=== PATIENT | female | born 1960 | race Caucasian/White ===

== ENCOUNTER 2017-05-30 06:09 | Inpatient (IN) | payer BC ==
[~2017-05-30 06:09] MED LIST: Lactated Ringers 1,000 ML IV SCH; Lidocaine 1%/Sod Bicarbonate in NS 8.4% 1 ML Syringe IV PRN; Sodium Chloride 0.9% 10 ML Syringe FLUSH PRN
[2017-05-30] MEDS ORDERED: Ondansetron 4 MG/2 ML SDV IVPUSH PRN (06:22)
[2017-05-30] MEDS ORDERED: Magnesium Hydroxide 400 MG/5 ML Susp 30 ML Cup PO PRN (06:22)
[2017-05-30] MEDS ORDERED: diphenhydrAMINE 50 MG/ML SDV IVPUSH PRN ×2 (06:22→09:50)
[2017-05-30] MEDS ORDERED: Naloxone 0.4 MG/ML SDV IVPUSH PRN (06:22)
[2017-05-30] MEDS ORDERED: Bisacodyl 5 MG Tab PO PRN (06:22)
[2017-05-30] MEDS ORDERED: Sennosides 8.6 MG Tab PO PRN (06:22)
[2017-05-30] MEDS ORDERED: Midazolam 1 MG/ML 2 ML SDV ONE (06:24)
[2017-05-30] MEDS ORDERED: Propofol 200 MG/20 ML SDV ONE (06:24)
[2017-05-30] MEDS ORDERED: fentaNYL 250 MCG/5 ML SDV ONE (06:25)
[2017-05-30] MEDS ORDERED: Ondansetron 4 MG/2 ML SDV ONE (06:26)
[2017-05-30] MEDS ORDERED: Lidocaine 1% 4 ML ONE (06:26)
[2017-05-30] MEDS ORDERED: Rocuronium 50 MG/5 ML Vial ONE (06:26)
[2017-05-30] MEDS ORDERED: Dexamethasone 4 MG/ML SDV ONE (06:26)
[2017-05-30] MEDS ORDERED: ceFAZolin 2 GM in Premix Bag 1 BAG IV SCH (06:30)
--- NOTE | 2017-05-30 06:35 | PCM.PREANE ---
Preanesthetic Assessment - Procedure Proposed Procedure: Right total shoulder arthroplasty - Anesthesia/Transfusion/Family Hx Anesthesia History: Prior Anesthesia Without Reaction Family History of Anesthesia Reaction: No Transfusion History: No Prior Transfusion(s) Intubation History: Unknown - Review of Systems General: No Symptoms Pulmonary: Other (JENA with CPAP ) Cardiovascular: No Symptoms Gastrointestinal: No Symptoms Neurological: No Symptoms Other: Reports: None, Depression, Anxiety - Physical Assessment NPO Status Date: 05/29/17 NPO Status Time: 18:30 Pulse: 63 O2 Sat by Pulse Oximetry: 98 Respiratory Rate: 16 Blood Pressure: 105/65 Temperature: 36.6 C Height: 1.55 m Weight: 62.596 kg ASA Class: 2 Mental Status: Alert & Oriented x3 Airway Class: Mallampati = 3 Dentition: Reports: Normal Dentition Thyro-Mental Finger Breadths: 3 Mouth Opening Finger Breadths: 3 ROM/Head Extension: Full Lungs: Clear to Auscultation, Normal Respiratory Effort Cardiovascular: Regular Rate, Regular Rhythm - Lab Values: Laboratory Last Values MRSA (PCR) Negative 05/17/17 12:44 - Allergies Allergies/Adverse Reactions: Allergies Allergy/AdvReac Type Severity Reaction Status Date / Time cat dander Allergy Cannot Verified 05/29/17 14:57 Remember - Blood Blood Available: No Product(s) Available: None - Anesthesia Plan Pre-Op Medication Ordered: None - Acknowledgements Anesthesia Type Planned: General Anesthesia, Regional Block Pt an Appropriate Candidate for the Planned Anesthesia: Yes Alternatives and Risks of Anesthesia Discussed w Pt/Guardian: Yes Pt/Guardian Understands and Agrees with Anesthesia Plan: Yes PreAnesthesia Questionnaire HEENT History: Reports: Impaired Vision Cardiovascular History: Reports: Heart Murmur Respiratory History: Reports: Other (See Below) Other Respiratory History: sleep apnea Gastrointestinal History: Reports: None Genitourinary History: Reports: Urinary Incontinence 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: Musculoskeletal History: Reports: Fibromyalgia, Osteoarthritis, Other (See Below ) Other Musculoskeletal History: right shoulder pain, joint pain Psychiatric History: Reports: Anxiety, Depression, Other (See Below) Other Psychiatric History: fatigue, bulimia nervosa Endocrine/Metabolic History: Reports: Diabetes, Gestational Hematologic History: Reports: None Immunologic History: Reports: None Oncologic (Cancer) History: Reports: None Dermatologic History: Reports: Other (See Below) Other Dermatologic History: herpes simplex virus - Past Surgical History HEENT Surgical History: Reports: Oral Surgery Cardiovascular Surgical History: Reports: None Respiratory Surgical History: Reports: None GI Surgical History: Reports: Colonoscopy Female Surgical History: Reports: D&C, Hysterectomy Endocrine Surgical History: Reports: None Neurological Surgical History: Reports: Laminectomy, Other (See Below) Other Neurological Surgeries/Procedures: Cervical fusion of C5C6 Musculoskeletal Surgical History: Reports: Other (See Below) Other Musculoskeletal Surgeries/Procedures:: Right toe surgery Oncologic Surgical History: Reports: None Dermatological Surgical History: Reports: None - SUBSTANCE USE Smoking Status *Q: Never Smoker Second Hand Smoke Exposure: No Recreational Drug Use History: No - HOME MEDS Home Medications: Home Meds Calcium Carbonate [Calcium] 1,200 mg PO DAILY 05/29/17 [History] Cholecalciferol (Vitamin D3) [Vitamin D3] 400 units PO DAILY 05/29/17 [History] Gluc/MSM/C/Hermann/Manganese/Nesha [Joint Support Complex Softgel] 1 cap PO DAILY [History] Lactobacillus Acidophilus [Acidophilus] 1 tab PO DAILY PRN 05/29/17 [History] Magnesium Citrate 100 mg PO DAILY PRN 05/29/17 [History] Multivitamin [Flintstones] 1 tab PO BTNUNITS 05/29/17 [History] Venlafaxine HCl [Venlafaxine ER] 75 mg PO DAILY 05/29/17 [History] valACYclovir [Valtrex] 2,000 mg PO DAILY PRN 05/29/17 [History] - CURRENT (IN HOUSE) MEDS Current Meds: Current Medications Lactated Ringer's (Ringers, Lactated) 1,000 mls @ 125 mls/hr IV ASDIRECTED JENNYFER Lidocaine/Sodium Bicarbonate (Buffered Lidocaine 1% In Ns 8.4%) 0.25 ml IV ONETIME PRN PRN Reason: Prior to IV Start Sodium Chloride (Saline Flush) 10 ml FLUSH ASDIRECTED PRN PRN Reason: Keep Vein Open Discontinued Medications Dexamethasone (Dexamethasone) Confirm Administered Dose 4 mg .ROUTE .STK-MED ONE Stop: 05/30/17 06:27 Fentanyl (Sublimaze) Confirm Administered Dose 250 mcg .ROUTE .STK-MED ONE Stop: 05/30/17 06:26 Lidocaine HCl (Xylocaine-Mpf 1%) Confirm Administered Dose 4 mls @ as directed .ROUTE .STK-MED ONE Stop: 05/30/17 06:27 Midazolam HCl (Versed 1 Mg/Ml) Confirm Administered Dose 2 mg .ROUTE .STK-MED ONE Stop: 05/30/17 06:25 Ondansetron HCl (Zofran) Confirm Administered Dose 4 mg .ROUTE .STK-MED ONE Stop: 05/30/17 06:27 Propofol (Diprivan 20 Ml) Confirm Administered Dose 200 mg .ROUTE .STK-MED ONE Stop: 05/30/17 06:25 Rocuronium Strong (Zemuron) Confirm Administered Dose 50 mg .ROUTE .STK-MED ONE Stop: 05/30/17 06:27
[2017-05-30] MEDS ORDERED: Lidocaine 1% 2 ML ONE (06:41)
[2017-05-30] MEDS ORDERED: Ropivacaine 0.5% 5 MG/ML 30 ML SDV ONE (08:24)
[2017-05-30] MEDS ORDERED: EPINEPHrine 1 MG/ML SDV ONE (08:24)
[2017-05-30] MEDS ORDERED: ePHEDrine/Normal Saline 25 MG/5 ML Syringe ONE (08:33)
[2017-05-30] MEDS: Iodine/Sodium Iodide 2% Tincture 30 ML Bottle ONE ×2 (08:33→09:03)
[2017-05-30] MEDS: ceFAZolin 1 GM Vial ONE ×2 (08:34→09:05)
[2017-05-30] MEDS: Bupivacaine 0.25% 30 ML SDV ONE ×4 (08:35→09:27)
[2017-05-30] MEDS: Vancomycin 1 GM SDV ONE ×2 (08:36→09:11)
[2017-05-30] MEDS: Triamcinolone Acetonide 40 MG/ML 1 ML MDV ONE ×2 (08:39→09:27)
--- NOTE | 2017-05-30 09:25 | PCM.SN ---
- Free Text/Narrative Note: Anesthesia Note: (Interscalene block note) Date: 05/30/17 Time Out: 648 Start: 644 Stop: 709 Surgical Procedure: Right Total Shoulder Arthroplasty Diagnosis: Right Shoulder Osteoarthritis Current Procedure: Right interscalene block under US guidance for postoperative pain control requested by Dr. Canseco. Patient chart reviewed, risk/benefits discussed with patient, consent obtained. Patient positioned supine, monitors/alarms on, oxygen placed via nasal cannula at 2 LPM. IV sedation administered: Versed 2mg IV @ 0650 Fentanyl 50 mcg IV @ 0650 Right shoulder prepped with two chloropreps. Sterile drapes placed with aseptic technique noted. Under US guidance(sterile US sleeve noted) right subclavian artery visualized along with the right brachial plexus. Plexus followed up to C6 cricoid level, and area localized with 2mls of 1% lidocaine. 22gauge 2 inch stimiplex needle advanced under US with 0.5mV with stimulation of biceps noted. Good stimulation noted with decreased voltage and absent at 0.2mVs. 1ml of Normal Saline injected with loss of stimulation noted to confirm needle not placed intraneurally. Incremental dosing of 5mls with negative aspiration noted prior to each injection of 0.5% ropivacaine with 1:200,000 epinephrine. Total volume=30mls. Vital Signs: Before HR: 63 RR: 16 BP: 105/73 Spo2: 100 on 2 LPM nasal cannula After HR: 63 RR: 14 BP: 105/73 Spo2: 99% on 2LPM nasal cannula
--- NOTE | 2017-05-30 09:49 | PCM.POSTAN ---
POST ANESTHESIA ASSESSMENT - MENTAL STATUS Mental Status: Alert, Oriented - VITAL SIGNS Pulse Rate: 86 SaO2: 97 Resp Rate: 11 Blood Pressure: 111/50 Temperature: 36.4 C - RESPIRATORY Respiratory Status: Respiratory Rate WNL, Airway Patent, O2 Saturation Stable, Supplemental Oxygen - CARDIOVASCULAR CV Status: Pulse Rate WNL, Blood Pressure Stable - GASTROINTESTINAL GI Status: No Symptoms - PAIN Pain Score: 0 - POST OP HYDRATION Hydration Status: Adequate & Stable
[2017-05-30] MEDS ORDERED: fentaNYL 100 MCG/2 ML SDV IVPUSH PRN (09:50)
[2017-05-30] MEDS ORDERED: Meperidine PF 50 MG/ML Syringe IVPUSH PRN (09:50)
[2017-05-30] MEDS ORDERED: HYDROmorphone 0.5 MG/0.5 ML Syringe IVPUSH PRN (09:50)
[2017-05-30] MEDS ORDERED: Promethazine 6.25 MG in Sodium Chloride 0.9% 50 ML IV PRN (09:50)
--- NOTE | 2017-05-30 10:06 | CR ---
Right shoulder: Three fluoroscopic spot views were obtained utilizing C-arm device of the right shoulder. Study shows reverse shoulder prosthesis. Components are aligned. Underlying bony structures are intact. Fluoroscopy time given as 4.2 seconds. Impression: 1. Postoperative study showing right shoulder prosthesis. Diagnostic code #2
--- NOTE | 2017-05-30 10:53 | CR ---
Right shoulder: AP view of the right shoulder was obtained. Study compared to previous operative exam performed on the same day. Reverse shoulder prosthesis seen. No fracture or other bony abnormality is seen. Impression: 1. Shoulder prosthesis. No complicating abnormality is identified by radiographic exam. Diagnostic code #2
[2017-05-30] MEDS: Acetaminophen/oxyCODONE 325-5 MG Tab PO PRN ×4 (10:58→23:57)
[2017-05-30] MEDS: Famotidine 20 MG Tab PO SCH ×3 (12:13→21:16)
[2017-05-30] MEDS: Cyclobenzaprine 10 MG Tab PO PRN ×2 (13:51→21:16)
[2017-05-30] MEDS ORDERED: valACYclovir 1,000 MG Tab PO PRN (13:53)
[2017-05-30] MEDS ORDERED: Saccharomyces Boulardii (Probiotic) 250 MG Cap PO PRN (13:53)
[2017-05-30] MEDS: ceFAZolin 2 GM in Premix Bag 1 BAG IV SCH ×2 (15:36→22:51)
--- NOTE | 2017-05-30 15:41 | PCM.CONS ---
H&P History of Present Illness - General Date of Service: 05/30/17 Admit Problem/Dx: Admission Diagnosis/Problem Admission Diagnosis/Problem Osteoarthritis of shoulder Source of Information: Patient, Other (anesthesia notes) History Limitations: Reports: No Limitations - History of Present Illness Initial Comments - Free Text/Narative: Constanza is a pleasant 56yo female s/p Rt TSA with Dr. Canseco this morning. PMH is significant for JENA with CPAP, depression/anxiety, urinary incontinence, fibromyalgia, history of heart murmur, hsitory of bulemia nervosa, history of gestational diabetes, history of back surgery/laminectomy, history of HSV. Hospitalist service is consulted for postoperative management of medical conditions. She is Full Code. PCP is Right Shoulder Pain Score (Numeric/FACES): 4 - Related Data Allergies/Adverse Reactions: Allergies Allergy/AdvReac Type Severity Reaction Status Date / Time cat dander Allergy Cannot Verified 05/30/17 10:48 Remember Home Medications: Home Meds Calcium Carbonate [Calcium] 1,200 mg PO DAILY 05/29/17 [History] Cholecalciferol (Vitamin D3) [Vitamin D3] 400 units PO DAILY 05/29/17 [History] Gluc/MSM/C/[place]or/Manganese/Nesha [Joint Support Complex Softgel] 1 cap PO DAILY [History] Lactobacillus Acidophilus [Acidophilus] 1 tab PO DAILY PRN 05/29/17 [History] Magnesium Citrate 100 mg PO DAILY PRN 05/29/17 [History] Multivitamin [Flintstones] 1 tab PO BTNUNITS 05/29/17 [History] Venlafaxine HCl [Venlafaxine ER] 75 mg PO DAILY 05/29/17 [History] valACYclovir [Valtrex] 2,000 mg PO DAILY PRN 05/29/17 [History] Past Medical History HEENT History: Reports: Impaired Vision Cardiovascular History: Reports: Heart Murmur Respiratory History: Reports: Other (See Below) Other Respiratory History: sleep apnea Gastrointestinal History: Reports: None Genitourinary History: Reports: Urinary Incontinence 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: Musculoskeletal History: Reports: Fibromyalgia, Osteoarthritis, Other (See Below ) Other Musculoskeletal History: right shoulder pain, joint pain Psychiatric History: Reports: Anxiety, Depression, Other (See Below) Other Psychiatric History: fatigue, bulimia nervosa Endocrine/Metabolic History: Reports: Diabetes, Gestational Hematologic History: Reports: None Immunologic History: Reports: None Oncologic (Cancer) History: Reports: None Dermatologic History: Reports: Other (See Below) Other Dermatologic History: herpes simplex virus - Past Surgical History HEENT Surgical History: Reports: Oral Surgery Cardiovascular Surgical History: Reports: None Respiratory Surgical History: Reports: None GI Surgical History: Reports: Colonoscopy Female Surgical History: Reports: D&C, Hysterectomy Endocrine Surgical History: Reports: None Neurological Surgical History: Reports: Laminectomy, Other (See Below) Other Neurological Surgeries/Procedures: Cervical fusion of C5C6 Musculoskeletal Surgical History: Reports: Other (See Below) Other Musculoskeletal Surgeries/Procedures:: Right toe surgery Oncologic Surgical History: Reports: None Dermatological Surgical History: Reports: None Social & Family History - Family History Family Medical History: Noncontributory - Tobacco Use Smoking Status *Q: Never Smoker Second Hand Smoke Exposure: No - Caffeine Use Caffeine Use: Reports: Coffee - Recreational Drug Use Recreational Drug Use: No H&P Review of Systems - Review of Systems: Review Of Systems: See Below General: Reports: No Symptoms HEENT: Reports: No Symptoms Pulmonary: Reports: No Symptoms Cardiovascular: Reports: No Symptoms Gastrointestinal: Reports: No Symptoms Genitourinary: Reports: No Symptoms Musculoskeletal: Reports: Shoulder Pain, Arm Pain Skin: Reports: No Symptoms Psychiatric: Reports: No Symptoms Neurological: Reports: No Symptoms Exam - Exam Exam: See Below - Vital Signs Vital Signs: Last Vital Signs Temp 97.8 F 05/30/17 10:25 Pulse 73 05/30/17 14:32 Resp 12 05/30/17 10:40 BP 98/58 L 05/30/17 14:32 Pulse Ox 96 05/30/17 14:32 Weight: 138 lb - Exam Quality Assessment: Supplemental Oxygen General: Alert, Oriented, Cooperative HEENT: Conjunctiva Clear, EOMI, Hearing Intact, Mucosa Moist & [place], Pupils Equal Neck: Supple Lungs: Clear to Auscultation, Normal Respiratory Effort, Decreased Breath Sounds (bases) Cardiovascular: Regular Rate, Regular Rhythm GI/Abdominal Exam: Normal Bowel Sounds, Soft, Non-Tender (Female) Exam: Deferred Rectal (Female) Exam: Deferred Extremities: Normal Capillary Refill, Other (right shoulder immobilizer in place , CMS + and = bilat) Peripheral Pulses: 2+: Radial (L), Radial (R) Skin: Warm Neurological: Cranial Nerves Intact Neuro Extensive - Mental Status: Alert, Oriented x3, Normal Mood/Affect, Normal Cognition, Memory Intact Neuro Extensive - Motor, Sensory, Reflexes: CN II-XII Intact Psychiatric: Alert, Normal Affect, Normal Mood Consult PN Assessment/Plan POD#: 0 Procedures: Procedures EMERGENCY DEPT VISIT (11/27/15) MRI JOINT UPR EXTREM W/O DYE (04/26/17) MRI NECK SPINE W/O DYE (06/22/16) POLYSOM 6/> YRS 4/> JEROME (07/10/15) POLYSOM 6/>YRS CPAP 4/> PARM (08/18/15) REMOVE FOREIGN BODY FROM EYE (11/27/15) US XTR NON-VASC COMPLETE (05/17/17) (1) Status post total shoulder arthroplasty SNOMED Code(s): 816714200 Code(s): Z96.619 - PRESENCE OF UNSPECIFIED ARTIFICIAL SHOULDER JOINT Priority: High Current Visit: Yes Qualifiers: Laterality: right Qualified Code(s): Z96.611 - Presence of right artificial shoulder joint (2) Osteoarthritis SNOMED Code(s): 646143590 Code(s): M19.90 - UNSPECIFIED OSTEOARTHRITIS, UNSPECIFIED SITE Priority: High Current Visit: Yes Qualifiers: Osteoarthritis location: shoulder Laterality: right (3) JENA on CPAP SNOMED Code(s): 78237167 Code(s): G47.33 - OBSTRUCTIVE SLEEP APNEA (ADULT) (PEDIATRIC); Z99.89 - DEPENDENCE ON OTHER ENABLING MACHINES AND DEVICES Priority: Medium Current Visit: Yes (4) Fibromyalgia SNOMED Code(s): 448274941 Code(s): M79.7 - FIBROMYALGIA Priority: Medium Current Visit: No (5) Urinary incontinence SNOMED Code(s): 813923681 Code(s): R32 - UNSPECIFIED URINARY INCONTINENCE Priority: Low Current Visit: No (6) Hx of cardiac murmur SNOMED Code(s): 003615282 Code(s): Z86.79 - PERSONAL HISTORY OF OTHER DISEASES OF THE CIRCULATORY SYSTEM Priority: Medium Current Visit: No (7) Hx of bulimia nervosa SNOMED Code(s): 736525336576308 Code(s): Z86.59 - PERSONAL HISTORY OF OTHER MENTAL AND BEHAVIORAL DISORDERS Priority: Low Current Visit: No (8) Hx of herpes simplex infection SNOMED Code(s): 282988753 Code(s): Z86.19 - PERSONAL HISTORY OF OTHER INFECTIOUS AND PARASITIC DISEASES Priority: Low Current Visit: No Problem List Initiated/Reviewed/Updated: Yes Plan: I/P: S/P Rt TSA, POD #0, Dr. Canseco -Pain management and DVT prophylax per primary team -PT/OT -RT/IS -Follow labs, am hgb -Supplemental oxygen as needed for sats <90%; wean when able Osteoarthritis--rt shoulder; plan as above Chronic medical conditions: Cont home meds -JENA with CPAP -Depression/Anxiety- stable--cont home meds -Hx of heart murmur -Hx of fibromyalgia -Hx of GDM -Hx of Bulemia Nervosa -Hx of HSV- cont home med, valtrex -Hx of back surgery/laminectomy Other: GI Prophylax Cont home meds Patient is Full Code status PCP is
[2017-05-30] MEDS: Docusate Sodium 100 MG Cap PO SCH (21:16)
[2017-05-30] MEDS: Morphine 2 MG/ML Syringe IVPUSH PRN (21:19)
[2017-05-30] MEDS ORDERED: Ketorolac 15 MG/ML SDV IVPUSH ONE (22:16)
[2017-05-30] MEDS: oxyCODONE 5 MG Tab PO PRN (22:39)
[2017-05-31] MEDS: Morphine 2 MG/ML Syringe IVPUSH PRN (01:34)
[2017-05-31] MEDS: Acetaminophen/oxyCODONE 325-5 MG Tab PO PRN ×2 (03:48→11:06)
[2017-05-31] MEDS ORDERED: Ketorolac 15 MG/ML SDV IVPUSH ONE (05:00)
[2017-05-31] MEDS: Cyclobenzaprine 10 MG Tab PO PRN ×2 (05:47→14:11)
[2017-05-31] MEDS: ceFAZolin 2 GM in Premix Bag 1 BAG IV SCH (05:58)
[2017-05-31] MEDS: oxyCODONE 5 MG Tab PO PRN (07:53)
[2017-05-31] MEDS ORDERED: Calcium Carbonate 600 MG Tab PO SCH (09:00)
[2017-05-31] MEDS ORDERED: Aspirin 325 MG Tab.EC PO SCH (09:00)
[2017-05-31] MEDS ORDERED: CHOLECALCIFEROL 400 UNIT PO SCH (09:00)
[2017-05-31] MEDS ORDERED: Venlafaxine 75 MG Cap.ER PO SCH (09:00)
[2017-05-31] MEDS: Famotidine 20 MG Tab PO SCH (09:58)
[2017-05-31] MEDS: Docusate Sodium 100 MG Cap PO SCH (09:58)
--- NOTE | 2017-05-31 11:30 | PCM.CONSN ---
- General Info Date of Service: 05/31/17 Admission Dx/Problem (Free Text): Admission Diagnosis/Problem Admission Diagnosis/Problem Osteoarthritis of shoulder POD #1 Reverse total shoulder Doing well, pain was bad last night, better this morning and under control. VSS Hgb good at 11.5, other labs essentially WNL. She is anxious for DC home today. Functional Status: Reports: Pain Controlled, Tolerating Diet, Ambulating, Urinating, Incentive Spirometry. Denies: New Symptoms - Review of Systems General: Reports: No Symptoms HEENT: Reports: No Symptoms Pulmonary: Reports: No Symptoms Cardiovascular: Reports: No Symptoms Gastrointestinal: Reports: No Symptoms Genitourinary: Reports: No Symptoms Musculoskeletal: Reports: Shoulder Pain, Arm Pain Skin: Reports: No Symptoms Neurological: Reports: No Symptoms Psychiatric: Reports: No Symptoms - Patient Data Vitals - Most Recent: Last Vital Signs Temp 97.5 F 05/31/17 08:00 Pulse 72 05/31/17 08:00 Resp 16 05/31/17 08:00 BP 102/60 05/31/17 08:00 Pulse Ox 96 05/31/17 08:00 Weight - Most Recent: 138 lb I&O - Last 24 Hours: Intake & Output 05/30/17 05/31/17 05/31/17 22:59 06:59 14:59 Intake Total 820 800 Output Total 3 Balance 820 797 Lab Results Last 24 Hours: Laboratory Results - last 24 hr 05/31/17 05/31/17 Range/Units 06:00 06:00 WBC 9.61 (3.98-10.04) K/mm3 RBC 3.69 L (3.98-5.22) M/mm3 Hgb 11.5 (11.2-15.7) gm/L Hct 35.9 (34.1-44.9) % MCV 97.3 H (79.4-94.8) fl MCH 31.2 (25.6-32.2) pg MCHC 32.0 L (32.2-35.5) g/dl RDW Std Deviation 46.7 H (36.4-46.3) fL Plt Count 289 (182-369) K/mm3 MPV 8.9 L (9.4-12.3) fl Sodium 141 (136-145) mEq/L Potassium 4.2 (3.5-5.1) mEq/L Chloride 105 (98-107) mEq/L Carbon Dioxide 29 (21-32) mEq/L Anion Gap 11.2 (5-15) BUN 14 (7-18) mg/dL Creatinine 0.7 (0.55-1.02) mg/dL Est Cr Clr Drug Dosing 68.52 mL/min Estimated GFR (MDRD) > 60 (>60) mL/min BUN/Creatinine Ratio 20.0 H (14-18) Glucose 125 H (74-106) mg/dL Calcium 8.5 (8.5-10.1) mg/dL Total Bilirubin 0.3 (0.2-1.0) mg/dL AST 29 (15-37) U/L ALT 42 (14-59) U/L Alkaline Phosphatase 61 (46-116) U/L Total Protein 6.0 L (6.4-8.2) g/dl Albumin 2.9 L (3.4-5.0) g/dl Globulin 3.1 gm/dL Albumin/Globulin Ratio 0.9 L (1-2) Med Orders - Current: Current Medications Aspirin (Ecotrin) 325 mg PO DAILY [facility] Last Admin: 05/31/17 09:58 Dose: 325 mg Bisacodyl (Dulcolax) 5 mg PO DAILY PRN PRN Reason: Constipation Calcium Carbonate/Glycine (Calcium Carbonate) 1,200 mg PO DAILY [facility] Last Admin: 05/31/17 09:58 Dose: 1,200 mg Cyclobenzaprine HCl (Flexeril) 10 mg PO TID PRN PRN Reason: Spasms Last Admin: 05/31/17 05:47 Dose: 10 mg Docusate Sodium (Colace) 100 mg PO BID [facility] Last Admin: 05/31/17 09:58 Dose: 100 mg Famotidine (Pepcid) 20 mg PO BID@0900,2100 [facility] Last Admin: 05/31/17 09:58 Dose: 20 mg Magnesium Hydroxide (Milk Of Magnesia) 30 ml PO BID PRN PRN Reason: Constipation Morphine Sulfate (Morphine) 2 mg IVPUSH Q2H PRN PRN Reason: Breakthrough Pain Last Admin: 05/31/17 01:34 Dose: 2 mg Naloxone HCl (Narcan) 0.1 mg IVPUSH Q5M PRN PRN Reason: Oversedation Ondansetron HCl (Zofran) 4 mg IVPUSH Q6H PRN PRN Reason: Nausea/Vomiting Last Admin: 05/31/17 03:58 Dose: 4 mg Oxycodone HCl (Oxycodone) 5 mg PO Q6H PRN PRN Reason: Pain Last Admin: 05/31/17 07:53 Dose: 5 mg Oxycodone/Acetaminophen (Percocet 325-5 Mg) 1 - 2 tab PO Q4H PRN PRN Reason: Pain Last Admin: 05/31/17 11:06 Dose: 2 tab Cholecalciferol ( Vitamin D3) 400 Units 400 each PO DAILY [facility] Last Admin: 05/31/17 09:58 Dose: Not Given Magnesium Citrate (100 Mg) 100 each PO DAILY PRN PRN Reason: as directed Saccharomyces Boulardii (Florastor) 1 mg PO DAILY PRN PRN Reason: as directed Senna (Senna) 8.6 mg PO BID PRN PRN Reason: Constipation Valacyclovir HCl (Valtrex) 2,000 mg PO DAILY PRN PRN Reason: cold sores Venlafaxine HCl (Effexor Xr) 75 mg PO DAILY [facility] Last Admin: 05/31/17 09:58 Dose: 75 mg Discontinued Medications Bupivacaine HCl (Marcaine 0.25%) Confirm Administered Dose 30 ml .ROUTE .STK- MED ONE Stop: 05/30/17 06:29 Last Admin: 05/30/17 09:27 Dose: 4 ml Cefazolin Sodium (Ancef) Confirm Administered Dose 2 gm .ROUTE .STK-MED ONE Stop: 05/30/17 06:29 Last Admin: 05/30/17 09:05 Dose: 2 gm Dexamethasone (Dexamethasone) Confirm Administered Dose 4 mg .ROUTE .STK-MED ONE Stop: 05/30/17 06:27 Diphenhydramine HCl (Benadryl) 25 mg IVPUSH Q4H PRN PRN Reason: Nausea Diphenhydramine HCl (Benadryl) 25 mg IVPUSH Q6H PRN PRN Reason: Pruritis Stop: 05/30/17 18:00 Ephedrine Sulfate (Ephedrine In Ns) Confirm Administered Dose 25 mg .ROUTE .STK- MED ONE Stop: 05/30/17 08:34 Epinephrine HCl (Adrenalin 1:1000) Confirm Administered Dose 1 mg .ROUTE .STK- MED ONE Stop: 05/30/17 08:25 Famotidine (Pepcid) 20 mg PO Q12H [facility] Last Admin: 05/30/17 19:13 Dose: Not Given Fentanyl (Sublimaze) Confirm Administered Dose 250 mcg .ROUTE .STK-MED ONE Stop: 05/30/17 06:26 Fentanyl (Sublimaze) 50 mcg IVPUSH Q5M PRN PRN Reason: Pain Stop: 05/30/17 18:00 Hydromorphone HCl (Dilaudid) 0.5 mg IVPUSH Q15M PRN PRN Reason: Pain (severe 7-10) Stop: 05/30/17 18:00 Last Admin: 05/30/17 10:11 Dose: 0.5 mg Lactated Ringer's (Ringers, Lactated) 1,000 mls @ 125 mls/hr IV ASDIRECTED [facility] Stop: 05/30/17 23:00 Last Admin: 05/30/17 06:25 Dose: 125 mls/hr Lidocaine HCl (Xylocaine-Mpf 1%) Confirm Administered Dose 4 mls @ as directed .ROUTE .STK-MED ONE Stop: 05/30/17 06:27 Lidocaine HCl (Xylocaine-Mpf 1%) Confirm Administered Dose 2 mls @ as directed .ROUTE .STK-MED ONE Stop: 05/30/17 06:42 Promethazine HCl 6.25 mg/ (Sodium Chloride) 50.25 mls @ 100 mls/hr IV ONETIME PRN PRN Reason: Nausea/Vomiting Stop: 05/30/17 18:00 Cefazolin Sodium/Dextrose 2 gm (/ Premix) 50 mls @ 100 mls/hr IV Q8H [facility] Stop: 05/31/17 07:29 Last Admin: 05/31/17 05:58 Dose: 100 mls/hr Acetaminophen (Ofirmev) 100 mls @ 400 mls/hr IV NOW ONE Stop: 05/30/17 22:35 Last Admin: 05/30/17 22:57 Dose: 400 mls/hr Iodine (Iodine 2% Mild Tincture) Confirm Administered Dose 30 ml .ROUTE .STK- MED ONE Stop: 05/30/17 06:29 Last Admin: 05/30/17 09:03 Dose: 18 ml Ketorolac Tromethamine (Toradol) 15 mg IVPUSH ONETIME ONE Stop: 05/30/17 22:17 Last Admin: 05/30/17 22:34 Dose: 15 mg Ketorolac Tromethamine (Toradol) 15 mg IVPUSH ONETIME ONE Stop: 05/31/17 05:01 Last Admin: 05/31/17 05:46 Dose: 15 mg Lidocaine/Sodium Bicarbonate (Buffered Lidocaine 1% In Ns 8.4%) 0.25 ml IV ONETIME PRN PRN Reason: Prior to IV Start Stop: 05/30/17 18:00 Last Admin: 05/30/17 06:25 Dose: 0.25 ml Meperidine HCl (Demerol) 12.5 mg IVPUSH ONETIME PRN PRN Reason: Shivering Stop: 05/30/17 18:00 Midazolam HCl (Versed 1 Mg/Ml) Confirm Administered Dose 2 mg .ROUTE .STK-MED ONE Stop: 05/30/17 06:25 Ondansetron HCl (Zofran) Confirm Administered Dose 4 mg .ROUTE .STK-MED ONE Stop: 05/30/17 06:27 Propofol (Diprivan 20 Ml) Confirm Administered Dose 200 mg .ROUTE .STK-MED ONE Stop: 05/30/17 06:25 Rocuronium [place] (Zemuron) Confirm Administered Dose 50 mg .ROUTE .STK-MED ONE Stop: 05/30/17 06:27 Ropivacaine (Naropin 0.5%) Confirm Administered Dose 30 ml .ROUTE .STK-MED ONE Stop: 05/30/17 08:25 Sodium Chloride (Saline Flush) 10 ml FLUSH ASDIRECTED PRN PRN Reason: Keep Vein Open Stop: 05/30/17 18:00 Tranexamic Acid (Cyklokapron) Confirm Administered Dose 1,000 mg .ROUTE .STK- MED ONE Stop: 05/30/17 06:28 Last Admin: 05/30/17 09:20 Dose: 1,000 mg Triamcinolone Acetonide (Kenalog-40) Confirm Administered Dose 80 mg .ROUTE .STK -MED ONE Stop: 05/30/17 06:29 Last Admin: 05/30/17 09:27 Dose: 80 mg Vancomycin HCl (Vancomycin) Confirm Administered Dose 1 gm .ROUTE .STK-MED ONE Stop: 05/30/17 06:29 Last Admin: 05/30/17 09:11 Dose: 1 gm - Exam Quality Assessment: DVT Prophylaxis General: Alert, Oriented, Cooperative, No Acute Distress HEENT: Pupils Equal, EOMI, Mucous Membr. Moist/[place] Neck: Supple Lungs: Clear to Auscultation, Normal Respiratory Effort Cardiovascular: Regular Rate, Regular Rhythm GI/Abdominal Exam: Normal Bowel Sounds, Soft, Non-Tender (Female) Exam: Deferred Extremities: Other (right shoulder immobilizer is in place; CMS + and = bilat) Peripheral Pulses: 2+: Radial (L), Radial (R) Skin: Warm, Dry Neurological: No New Focal Deficit Psy/Mental Status: Alert, Normal Affect, Normal Mood Consult PN Assessment/Plan POD#: 1 Procedures: Procedures EMERGENCY DEPT VISIT (11/27/15) MRI JOINT UPR EXTREM W/O DYE (04/26/17) MRI NECK SPINE W/O DYE (06/22/16) POLYSOM 6/> YRS 4/> JEROME (07/10/15) POLYSOM 6/>YRS CPAP 4/> PARM (08/18/15) REMOVE FOREIGN BODY FROM EYE (11/27/15) US XTR NON-VASC COMPLETE (05/17/17) (1) Status post total shoulder arthroplasty SNOMED Code(s): 875840833 Code(s): Z96.619 - PRESENCE OF UNSPECIFIED ARTIFICIAL SHOULDER JOINT Priority: High Current Visit: Yes Qualifiers: Laterality: right Qualified Code(s): Z96.611 - Presence of right artificial shoulder joint (2) Osteoarthritis SNOMED Code(s): 743958078 Code(s): M19.90 - UNSPECIFIED OSTEOARTHRITIS, UNSPECIFIED SITE Priority: High Current Visit: Yes Qualifiers: Osteoarthritis location: shoulder Laterality: right (3) JENA on CPAP SNOMED Code(s): 16205867 Code(s): G47.33 - OBSTRUCTIVE SLEEP APNEA (ADULT) (PEDIATRIC); Z99.89 - DEPENDENCE ON OTHER ENABLING MACHINES AND DEVICES Priority: Medium Current Visit: Yes (4) Fibromyalgia SNOMED Code(s): 865771763 Code(s): M79.7 - FIBROMYALGIA Priority: Medium Current Visit: No (5) Urinary incontinence SNOMED Code(s): 118149179 Code(s): R32 - UNSPECIFIED URINARY INCONTINENCE Priority: Low Current Visit: No (6) Hx of cardiac murmur SNOMED Code(s): 112137311 Code(s): Z86.79 - PERSONAL HISTORY OF OTHER DISEASES OF THE CIRCULATORY SYSTEM Priority: Medium Current Visit: No (7) Hx of bulimia nervosa SNOMED Code(s): 402919491706053 Code(s): Z86.59 - PERSONAL HISTORY OF OTHER MENTAL AND BEHAVIORAL DISORDERS Priority: Low Current Visit: No (8) Hx of herpes simplex infection SNOMED Code(s): 924198800 Code(s): Z86.19 - PERSONAL HISTORY OF OTHER INFECTIOUS AND PARASITIC DISEASES Priority: Low Current Visit: No Problem List Initiated/Reviewed/Updated: Yes Plan: I/P: S/P Rt TSA, POD #1, Dr. Canseco -Pain management and DVT prophylax per primary team -PT/OT -RT/IS -Follow labs, am hgb good at 11.5 Osteoarthritis--rt shoulder; plan as above Chronic medical conditions: Cont home meds -JENA with CPAP -Depression/Anxiety- stable--cont home meds -Hx of heart murmur -Hx of fibromyalgia -Hx of GDM -Hx of Bulimia Nervosa -Hx of HSV- cont home med, valtrex -Hx of back surgery/laminectomy Other: GI Prophylax CM/SW for assist with DC planning--Patient doing well and is OK from Hospitalist standpoint for DC home today. Cont home meds Patient is Full Code status
--- NOTE | 2017-05-31 13:11 | PCM.SURGPN ---
- General Info Date of Service: 05/31/17 POD#: 1 Functional Status: Reports: Pain Controlled, Tolerating Diet, Ambulating, Urinating, Incentive Spirometry, Other (The pt reported increased discomfort last night. The pain has since improved.) - Patient Data Vitals - Most Recent: Last Vital Signs Temp 97.5 F 05/31/17 08:00 Pulse 72 05/31/17 08:00 Resp 16 05/31/17 08:00 BP 102/60 05/31/17 08:00 Pulse Ox 96 05/31/17 08:00 Weight - Most Recent: 138 lb I&O - Last 24 Hours: Intake & Output 05/30/17 05/31/17 05/31/17 22:59 06:59 14:59 Intake Total 820 800 240 Output Total 3 Balance 820 797 240 Lab Results Last 24 Hrs: Laboratory Results - last 24 hr 05/31/17 05/31/17 Range/Units 06:00 06:00 WBC 9.61 (3.98-10.04) K/mm3 RBC 3.69 L (3.98-5.22) M/mm3 Hgb 11.5 (11.2-15.7) gm/L Hct 35.9 (34.1-44.9) % MCV 97.3 H (79.4-94.8) fl MCH 31.2 (25.6-32.2) pg MCHC 32.0 L (32.2-35.5) g/dl RDW Std Deviation 46.7 H (36.4-46.3) fL Plt Count 289 (182-369) K/mm3 MPV 8.9 L (9.4-12.3) fl Sodium 141 (136-145) mEq/L Potassium 4.2 (3.5-5.1) mEq/L Chloride 105 (98-107) mEq/L Carbon Dioxide 29 (21-32) mEq/L Anion Gap 11.2 (5-15) BUN 14 (7-18) mg/dL Creatinine 0.7 (0.55-1.02) mg/dL Est Cr Clr Drug Dosing 68.52 mL/min Estimated GFR (MDRD) > 60 (>60) mL/min BUN/Creatinine Ratio 20.0 H (14-18) Glucose 125 H (74-106) mg/dL Calcium 8.5 (8.5-10.1) mg/dL Total Bilirubin 0.3 (0.2-1.0) mg/dL AST 29 (15-37) U/L ALT 42 (14-59) U/L Alkaline Phosphatase 61 (46-116) U/L Total Protein 6.0 L (6.4-8.2) g/dl Albumin 2.9 L (3.4-5.0) g/dl Globulin 3.1 gm/dL Albumin/Globulin Ratio 0.9 L (1-2) Med Orders - Current: Current Medications Aspirin (Ecotrin) 325 mg PO DAILY [facility] Last Admin: 05/31/17 09:58 Dose: 325 mg Bisacodyl (Dulcolax) 5 mg PO DAILY PRN PRN Reason: Constipation Calcium Carbonate/Glycine (Calcium Carbonate) 1,200 mg PO DAILY [facility] Last Admin: 05/31/17 09:58 Dose: 1,200 mg Cyclobenzaprine HCl (Flexeril) 10 mg PO TID PRN PRN Reason: Spasms Last Admin: 05/31/17 05:47 Dose: 10 mg Docusate Sodium (Colace) 100 mg PO BID [facility] Last Admin: 05/31/17 09:58 Dose: 100 mg Famotidine (Pepcid) 20 mg PO BID@0900,2100 [facility] Last Admin: 05/31/17 09:58 Dose: 20 mg Magnesium Hydroxide (Milk Of Magnesia) 30 ml PO BID PRN PRN Reason: Constipation Morphine Sulfate (Morphine) 2 mg IVPUSH Q2H PRN PRN Reason: Breakthrough Pain Last Admin: 05/31/17 01:34 Dose: 2 mg Naloxone HCl (Narcan) 0.1 mg IVPUSH Q5M PRN PRN Reason: Oversedation Ondansetron HCl (Zofran) 4 mg IVPUSH Q6H PRN PRN Reason: Nausea/Vomiting Last Admin: 05/31/17 03:58 Dose: 4 mg Oxycodone HCl (Oxycodone) 5 mg PO Q6H PRN PRN Reason: Pain Last Admin: 05/31/17 07:53 Dose: 5 mg Oxycodone/Acetaminophen (Percocet 325-5 Mg) 1 - 2 tab PO Q4H PRN PRN Reason: Pain Last Admin: 05/31/17 11:06 Dose: 2 tab Cholecalciferol ( Vitamin D3) 400 Units 400 each PO DAILY [facility] Last Admin: 05/31/17 09:58 Dose: Not Given Magnesium Citrate (100 Mg) 100 each PO DAILY PRN PRN Reason: as directed Saccharomyces Boulardii (Florastor) 1 mg PO DAILY PRN PRN Reason: as directed Senna (Senna) 8.6 mg PO BID PRN PRN Reason: Constipation Valacyclovir HCl (Valtrex) 2,000 mg PO DAILY PRN PRN Reason: cold sores Venlafaxine HCl (Effexor Xr) 75 mg PO DAILY [facility] Last Admin: 05/31/17 09:58 Dose: 75 mg Discontinued Medications Bupivacaine HCl (Marcaine 0.25%) Confirm Administered Dose 30 ml .ROUTE .STK- MED ONE Stop: 05/30/17 06:29 Last Admin: 05/30/17 09:27 Dose: 4 ml Cefazolin Sodium (Ancef) Confirm Administered Dose 2 gm .ROUTE .STK-MED ONE Stop: 05/30/17 06:29 Last Admin: 05/30/17 09:05 Dose: 2 gm Dexamethasone (Dexamethasone) Confirm Administered Dose 4 mg .ROUTE .STK-MED ONE Stop: 05/30/17 06:27 Diphenhydramine HCl (Benadryl) 25 mg IVPUSH Q4H PRN PRN Reason: Nausea Diphenhydramine HCl (Benadryl) 25 mg IVPUSH Q6H PRN PRN Reason: Pruritis Stop: 05/30/17 18:00 Ephedrine Sulfate (Ephedrine In Ns) Confirm Administered Dose 25 mg .ROUTE .STK- MED ONE Stop: 05/30/17 08:34 Epinephrine HCl (Adrenalin 1:1000) Confirm Administered Dose 1 mg .ROUTE .STK- MED ONE Stop: 05/30/17 08:25 Famotidine (Pepcid) 20 mg PO Q12H [facility] Last Admin: 05/30/17 19:13 Dose: Not Given Fentanyl (Sublimaze) Confirm Administered Dose 250 mcg .ROUTE .STK-MED ONE Stop: 05/30/17 06:26 Fentanyl (Sublimaze) 50 mcg IVPUSH Q5M PRN PRN Reason: Pain Stop: 05/30/17 18:00 Hydromorphone HCl (Dilaudid) 0.5 mg IVPUSH Q15M PRN PRN Reason: Pain (severe 7-10) Stop: 05/30/17 18:00 Last Admin: 05/30/17 10:11 Dose: 0.5 mg Lactated Ringer's (Ringers, Lactated) 1,000 mls @ 125 mls/hr IV ASDIRECTED [facility] Stop: 05/30/17 23:00 Last Admin: 05/30/17 06:25 Dose: 125 mls/hr Lidocaine HCl (Xylocaine-Mpf 1%) Confirm Administered Dose 4 mls @ as directed .ROUTE .STK-MED ONE Stop: 05/30/17 06:27 Lidocaine HCl (Xylocaine-Mpf 1%) Confirm Administered Dose 2 mls @ as directed .ROUTE .STK-MED ONE Stop: 05/30/17 06:42 Promethazine HCl 6.25 mg/ (Sodium Chloride) 50.25 mls @ 100 mls/hr IV ONETIME PRN PRN Reason: Nausea/Vomiting Stop: 05/30/17 18:00 Cefazolin Sodium/Dextrose 2 gm (/ Premix) 50 mls @ 100 mls/hr IV Q8H [facility] Stop: 05/31/17 07:29 Last Admin: 05/31/17 05:58 Dose: 100 mls/hr Acetaminophen (Ofirmev) 100 mls @ 400 mls/hr IV NOW ONE Stop: 05/30/17 22:35 Last Admin: 05/30/17 22:57 Dose: 400 mls/hr Iodine (Iodine 2% Mild Tincture) Confirm Administered Dose 30 ml .ROUTE .STK- MED ONE Stop: 05/30/17 06:29 Last Admin: 05/30/17 09:03 Dose: 18 ml Ketorolac Tromethamine (Toradol) 15 mg IVPUSH ONETIME ONE Stop: 05/30/17 22:17 Last Admin: 05/30/17 22:34 Dose: 15 mg Ketorolac Tromethamine (Toradol) 15 mg IVPUSH ONETIME ONE Stop: 05/31/17 05:01 Last Admin: 05/31/17 05:46 Dose: 15 mg Lidocaine/Sodium Bicarbonate (Buffered Lidocaine 1% In Ns 8.4%) 0.25 ml IV ONETIME PRN PRN Reason: Prior to IV Start Stop: 05/30/17 18:00 Last Admin: 05/30/17 06:25 Dose: 0.25 ml Meperidine HCl (Demerol) 12.5 mg IVPUSH ONETIME PRN PRN Reason: Shivering Stop: 05/30/17 18:00 Midazolam HCl (Versed 1 Mg/Ml) Confirm Administered Dose 2 mg .ROUTE .STK-MED ONE Stop: 05/30/17 06:25 Ondansetron HCl (Zofran) Confirm Administered Dose 4 mg .ROUTE .STK-MED ONE Stop: 05/30/17 06:27 Propofol (Diprivan 20 Ml) Confirm Administered Dose 200 mg .ROUTE .STK-MED ONE Stop: 05/30/17 06:25 Rocuronium [place] (Zemuron) Confirm Administered Dose 50 mg .ROUTE .STK-MED ONE Stop: 05/30/17 06:27 Ropivacaine (Naropin 0.5%) Confirm Administered Dose 30 ml .ROUTE .STK-MED ONE Stop: 05/30/17 08:25 Sodium Chloride (Saline Flush) 10 ml FLUSH ASDIRECTED PRN PRN Reason: Keep Vein Open Stop: 05/30/17 18:00 Tranexamic Acid (Cyklokapron) Confirm Administered Dose 1,000 mg .ROUTE .STK- MED ONE Stop: 05/30/17 06:28 Last Admin: 05/30/17 09:20 Dose: 1,000 mg Triamcinolone Acetonide (Kenalog-40) Confirm Administered Dose 80 mg .ROUTE .STK -MED ONE Stop: 05/30/17 06:29 Last Admin: 05/30/17 09:27 Dose: 80 mg Vancomycin HCl (Vancomycin) Confirm Administered Dose 1 gm .ROUTE .STK-MED ONE Stop: 05/30/17 06:29 Last Admin: 05/30/17 09:11 Dose: 1 gm - Exam Wound/Incisions: Dressing Dry and Intact General: Alert, Cooperative, No Acute Distress Lungs: Normal Respiratory Effort Extremities: Other (NVS intact for RUE. Active right wrist, hand motion noted.) - Problem List Review Problem List Initiated/Reviewed/Updated: Yes - My Orders Last 24 Hours: Active Orders 24 hr Category Date Time Status Ready for Discharge [RC] PER UNIT ROUTINE Care 05/31/17 08:36 Active Vital Signs [RC] Q4HR Care 05/30/17 14:26 Active Aspirin [Ecotrin] Med 05/31/17 09:00 Active 325 mg PO DAILY Calcium Carbonate Med 05/31/17 09:00 Active 1,200 mg PO DAILY Docusate Sodium [Colace] Med 05/30/17 21:00 Active 100 mg PO BID Famotidine [Pepcid] Med 05/30/17 21:00 Active 20 mg PO BID@0900,2100 Patient's Own Medication [Ptom] Med 05/30/17 13:53 Active 100 each PO DAILY PRN Patient's Own Medication [Ptom] Med 05/31/17 09:00 Active 400 each PO DAILY Saccharomyces Boulardii [Florastor] Med 05/30/17 13:53 Active 1 mg PO DAILY PRN Venlafaxine [Effexor XR] Med 05/31/17 09:00 Active 75 mg PO DAILY oxyCODONE Med 05/30/17 22:20 Active 5 mg PO Q6H PRN valACYclovir [Valtrex] Med 05/30/17 13:53 Active 2,000 mg PO DAILY PRN Medication Orders Aspirin (Ecotrin) 325 mg PO DAILY [facility] Last Admin: 05/31/17 09:58 Dose: 325 mg Bisacodyl (Dulcolax) 5 mg PO DAILY PRN PRN Reason: Constipation Calcium Carbonate/Glycine (Calcium Carbonate) 1,200 mg PO DAILY [facility] Last Admin: 05/31/17 09:58 Dose: 1,200 mg Cyclobenzaprine HCl (Flexeril) 10 mg PO TID PRN PRN Reason: Spasms Last Admin: 05/31/17 05:47 Dose: 10 mg Admin: 05/30/17 21:16 Dose: 10 mg Admin: 05/30/17 13:51 Dose: 10 mg Docusate Sodium (Colace) 100 mg PO BID [facility] Last Admin: 05/31/17 09:58 Dose: 100 mg Admin: 05/30/17 21:16 Dose: 100 mg Famotidine (Pepcid) 20 mg PO BID@0900,2100 [facility] Last Admin: 05/31/17 09:58 Dose: 20 mg Admin: 05/30/17 21:16 Dose: 20 mg Magnesium Hydroxide (Milk Of Magnesia) 30 ml PO BID PRN PRN Reason: Constipation Morphine Sulfate (Morphine) 2 mg IVPUSH Q2H PRN PRN Reason: Breakthrough Pain Last Admin: 05/31/17 01:34 Dose: 2 mg Admin: 05/30/17 21:19 Dose: 2 mg Naloxone HCl (Narcan) 0.1 mg IVPUSH Q5M PRN PRN Reason: Oversedation Ondansetron HCl (Zofran) 4 mg IVPUSH Q6H PRN PRN Reason: Nausea/Vomiting Last Admin: 05/31/17 03:58 Dose: 4 mg Oxycodone HCl (Oxycodone) 5 mg PO Q6H PRN PRN Reason: Pain Last Admin: 05/31/17 07:53 Dose: 5 mg Admin: 05/30/17 22:39 Dose: 5 mg Oxycodone/Acetaminophen (Percocet 325-5 Mg) 1 - 2 tab PO Q4H PRN PRN Reason: Pain Last Admin: 05/31/17 11:06 Dose: 2 tab Admin: 05/31/17 03:48 Dose: 2 tab Admin: 05/30/17 23:57 Dose: 2 tab Admin: 05/30/17 19:11 Dose: 2 tab Admin: 05/30/17 15:32 Dose: 2 tab Admin: 05/30/17 10:58 Dose: 2 tab Cholecalciferol ( Vitamin D3) 400 Units 400 each PO DAILY [facility] Last Admin: 05/31/17 09:58 Dose: Magnesium Citrate (100 Mg) 100 each PO DAILY PRN PRN Reason: as directed Saccharomyces Boulardii (Florastor) 1 mg PO DAILY PRN PRN Reason: as directed Senna (Senna) 8.6 mg PO BID PRN PRN Reason: Constipation Valacyclovir HCl (Valtrex) 2,000 mg PO DAILY PRN PRN Reason: cold sores Venlafaxine HCl (Effexor Xr) 75 mg PO DAILY [facility] Last Admin: 05/31/17 09:58 Dose: 75 mg - Assessment Assessment (Free Text/Narrative):: POD#1 - right reverse TSA - Plan Plan (Free Text/Narrative):: 1. 325mg ASA BID. Pt and counseled on frequent mobility. 2. Pt's pain is controlled. Discussed use of and precautions with Percocet and oxycodone with pt and . 3. Outpatient P.T. or O.T. The pt's case was discussed with Dr. Canseco today.
--- NOTE | 2017-05-31 13:14 | PCM.DCSUM1 ---
Discharge Summary - Hospital Course Brief History: Constanza is a 56 yo female who underwent right reverse total shoulder arthroplasty with Dr. Canseco on 05-30-2017. The procedure was completed under general anesthesia with regional block. The pt tolerated the procedure well and was admitted to the Medical-Surgical Unit. Medical management was provided by the Hospitalist service. The pt's Hospital course was uneventful. The pt's Hgb on POD#1 was 11.5. On POD#1, 325mg ASA daily was initiated for VTE prophylaxis. SCDs and TEDs were also ordered. A Mepilex dressing was placed at the incision site at the time of surgery and remained clean and dry. The pt participated in therapy and progressed well. On POD#1, the pt was deemed appropriate to discharge to home with her . - Discharge Data Discharge Date: 05/31/17 Discharge Disposition: Home, Self-Care 01 Condition: Good - Patient Summary/Data Consults: Consultations 05/30/17 06:22 Consult to Physician [CONS] Routine OT Evaluation and Treatment [CONS] Routine 05/30/17 06:29 PT Evaluation and Treatment [CONS] Routine - Patient Instructions Diet: Usual Diet as Tolerated Activity: Apply Ice, As Tolerated, Elevate Extremity Driving: Do Not Drive Showering/Bathing: May Shower Wound/Incision Care: Keep Operative Site/Wound Site Clean and Dry, Do NOT Change Dressing Notify Provider of: Fever, Increased Pain, Swelling and Redness, Drainage, Nausea and/or Vomiting Other/Special Instructions: Please get up and moving around every hour while awake. This helps to prevent blood clots. Please take a 325mg aspirin daily. This also helps to prevent blood clots. The aspirin is not being used for pain management, but rather for blood clot prevention so please try not to miss a dose of the medication. Please wear the immobilizer as directed. You may schedule for physical therapy. The therapist will use the [facility] protocol. Place ice to the limb. Have a towel between the blue ice pad and your skin. Keep the Mepilex dressing in place until follow-up at the Clinic. You may use the pain medication as needed. The medication may cause drowsiness and/or constipation. Please contact your primary care provider for instructions if you are constipated. Please call the Clinic with other concerns - [phone]. - Discharge Plan Prescriptions/Med Rec: Acetaminophen/oxyCODONE [Percocet 325-5 MG] 1 - 2 tab PO Q4H PRN #60 tablet PRN Reason: Pain Cyclobenzaprine [Flexeril] 10 mg PO TID PRN #40 tablet PRN Reason: Spasms oxyCODONE 5 mg PO Q6H PRN #30 tablet PRN Reason: Pain Home Medications: Home Meds Calcium Carbonate [Calcium] 1,200 mg PO DAILY 05/29/17 [History] Cholecalciferol (Vitamin D3) [Vitamin D3] 400 units PO DAILY 05/29/17 [History] Gluc/MSM/C/[place]anganese/Nesha [Joint Support Complex Softgel] 1 cap PO DAILY [History] Lactobacillus Acidophilus [Acidophilus] 1 tab PO DAILY PRN 05/29/17 [History] Magnesium Citrate 100 mg PO DAILY PRN 05/29/17 [History] Multivitamin [Flintstones] 1 tab PO BTNUNITS 05/29/17 [History] Venlafaxine HCl [Venlafaxine ER] 75 mg PO DAILY 05/29/17 [History] valACYclovir [Valtrex] 2,000 mg PO DAILY PRN 05/29/17 [History] Acetaminophen/oxyCODONE [Percocet 325-5 MG] 1 - 2 tab PO Q4H PRN #60 tablet 07/17 [Rx] Aspirin [Ecotrin] 325 mg PO DAILY tab.ec 05/31/17 [Rx] Bisacodyl [Dulcolax] 5 mg PO DAILY PRN tablet 05/31/17 [Rx] Cyclobenzaprine [Flexeril] 10 mg PO TID PRN #40 tablet 05/31/17 [Rx] Docusate Sodium [Colace] 100 mg PO BID cap 05/31/17 [Rx] Famotidine [Pepcid] 20 mg PO BID@0900,2100 tablet 05/31/17 [Rx] Magnesium Hydroxide [Milk of Magnesia] 30 ml PO BID PRN cup 05/31/17 [Rx] Sennosides [Senna] 8.6 mg PO BID PRN tablet 05/31/17 [Rx] oxyCODONE 5 mg PO Q6H PRN #30 tablet 05/31/17 [Rx] Patient Handouts: Cyclobenzaprine tablets, Shoulder Joint Replacement, Acetaminophen; Oxycodone tablets, Shoulder Joint Replacement, Care After, Aspirin, ASA oral tablets Referrals: Sabiha Tinoco PA-C [Physician Quantitative Manager] - 06/07/17 8:45 am (Please follow up with Sabiha Tinoco on Jun.07 at 0845, and on at 0845.) - Patient Data Vitals - Most Recent: Last Vital Signs Temp 97.5 F 05/31/17 08:00 Pulse 72 05/31/17 08:00 Resp 16 05/31/17 08:00 BP 102/60 05/31/17 08:00 Pulse Ox 96 05/31/17 08:00 Weight - Most Recent: 138 lb I&O - Last 24 hours: Intake & Output 05/30/17 05/31/17 05/31/17 22:59 06:59 14:59 Intake Total 820 800 240 Output Total 3 Balance 820 797 240 Lab Results - Last 24 hrs: Laboratory Results - last 24 hr 05/31/17 05/31/17 Range/Units 06:00 06:00 WBC 9.61 (3.98-10.04) K/mm3 RBC 3.69 L (3.98-5.22) M/mm3 Hgb 11.5 (11.2-15.7) gm/L Hct 35.9 (34.1-44.9) % MCV 97.3 H (79.4-94.8) fl MCH 31.2 (25.6-32.2) pg MCHC 32.0 L (32.2-35.5) g/dl RDW Std Deviation 46.7 H (36.4-46.3) fL Plt Count 289 (182-369) K/mm3 MPV 8.9 L (9.4-12.3) fl Sodium 141 (136-145) mEq/L Potassium 4.2 (3.5-5.1) mEq/L Chloride 105 (98-107) mEq/L Carbon Dioxide 29 (21-32) mEq/L Anion Gap 11.2 (5-15) BUN 14 (7-18) mg/dL Creatinine 0.7 (0.55-1.02) mg/dL Est Cr Clr Drug Dosing 68.52 mL/min Estimated GFR (MDRD) > 60 (>60) mL/min BUN/Creatinine Ratio 20.0 H (14-18) Glucose 125 H (74-106) mg/dL Calcium 8.5 (8.5-10.1) mg/dL Total Bilirubin 0.3 (0.2-1.0) mg/dL AST 29 (15-37) U/L ALT 42 (14-59) U/L Alkaline Phosphatase 61 (46-116) U/L Total Protein 6.0 L (6.4-8.2) g/dl Albumin 2.9 L (3.4-5.0) g/dl Globulin 3.1 gm/dL Albumin/Globulin Ratio 0.9 L (1-2) Med Orders - Current: Current Medications Aspirin (Ecotrin) 325 mg PO DAILY [facility] Last Admin: 05/31/17 09:58 Dose: 325 mg Bisacodyl (Dulcolax) 5 mg PO DAILY PRN PRN Reason: Constipation Calcium Carbonate/Glycine (Calcium Carbonate) 1,200 mg PO DAILY [facility] Last Admin: 05/31/17 09:58 Dose: 1,200 mg Cyclobenzaprine HCl (Flexeril) 10 mg PO TID PRN PRN Reason: Spasms Last Admin: 05/31/17 05:47 Dose: 10 mg Docusate Sodium (Colace) 100 mg PO BID [facility] Last Admin: 05/31/17 09:58 Dose: 100 mg Famotidine (Pepcid) 20 mg PO BID@0900,2100 [facility] Last Admin: 05/31/17 09:58 Dose: 20 mg Magnesium Hydroxide (Milk Of Magnesia) 30 ml PO BID PRN PRN Reason: Constipation Morphine Sulfate (Morphine) 2 mg IVPUSH Q2H PRN PRN Reason: Breakthrough Pain Last Admin: 05/31/17 01:34 Dose: 2 mg Naloxone HCl (Narcan) 0.1 mg IVPUSH Q5M PRN PRN Reason: Oversedation Ondansetron HCl (Zofran) 4 mg IVPUSH Q6H PRN PRN Reason: Nausea/Vomiting Last Admin: 05/31/17 03:58 Dose: 4 mg Oxycodone HCl (Oxycodone) 5 mg PO Q6H PRN PRN Reason: Pain Last Admin: 05/31/17 07:53 Dose: 5 mg Oxycodone/Acetaminophen (Percocet 325-5 Mg) 1 - 2 tab PO Q4H PRN PRN Reason: Pain Last Admin: 05/31/17 11:06 Dose: 2 tab Cholecalciferol ( Vitamin D3) 400 Units 400 each PO DAILY [facility] Last Admin: 05/31/17 09:58 Dose: Not Given Magnesium Citrate (100 Mg) 100 each PO DAILY PRN PRN Reason: as directed Saccharomyces Boulardii (Florastor) 1 mg PO DAILY PRN PRN Reason: as directed Senna (Senna) 8.6 mg PO BID PRN PRN Reason: Constipation Valacyclovir HCl (Valtrex) 2,000 mg PO DAILY PRN PRN Reason: cold sores Venlafaxine HCl (Effexor Xr) 75 mg PO DAILY [facility] Last Admin: 05/31/17 09:58 Dose: 75 mg Discontinued Medications Bupivacaine HCl (Marcaine 0.25%) Confirm Administered Dose 30 ml .ROUTE .STK- MED ONE Stop: 05/30/17 06:29 Last Admin: 05/30/17 09:27 Dose: 4 ml Cefazolin Sodium (Ancef) Confirm Administered Dose 2 gm .ROUTE .STK-MED ONE Stop: 05/30/17 06:29 Last Admin: 05/30/17 09:05 Dose: 2 gm Dexamethasone (Dexamethasone) Confirm Administered Dose 4 mg .ROUTE .STK-MED ONE Stop: 05/30/17 06:27 Diphenhydramine HCl (Benadryl) 25 mg IVPUSH Q4H PRN PRN Reason: Nausea Diphenhydramine HCl (Benadryl) 25 mg IVPUSH Q6H PRN PRN Reason: Pruritis Stop: 05/30/17 18:00 Ephedrine Sulfate (Ephedrine In Ns) Confirm Administered Dose 25 mg .ROUTE .STK- MED ONE Stop: 05/30/17 08:34 Epinephrine HCl (Adrenalin 1:1000) Confirm Administered Dose 1 mg .ROUTE .STK- MED ONE Stop: 05/30/17 08:25 Famotidine (Pepcid) 20 mg PO Q12H [facility] Last Admin: 05/30/17 19:13 Dose: Not Given Fentanyl (Sublimaze) Confirm Administered Dose 250 mcg .ROUTE .STK-MED ONE Stop: 05/30/17 06:26 Fentanyl (Sublimaze) 50 mcg IVPUSH Q5M PRN PRN Reason: Pain Stop: 05/30/17 18:00 Hydromorphone HCl (Dilaudid) 0.5 mg IVPUSH Q15M PRN PRN Reason: Pain (severe 7-10) Stop: 05/30/17 18:00 Last Admin: 05/30/17 10:11 Dose: 0.5 mg Lactated Ringer's (Ringers, Lactated) 1,000 mls @ 125 mls/hr IV ASDIRECTED [facility] Stop: 05/30/17 23:00 Last Admin: 05/30/17 06:25 Dose: 125 mls/hr Lidocaine HCl (Xylocaine-Mpf 1%) Confirm Administered Dose 4 mls @ as directed .ROUTE .STK-MED ONE Stop: 05/30/17 06:27 Lidocaine HCl (Xylocaine-Mpf 1%) Confirm Administered Dose 2 mls @ as directed .ROUTE .STK-MED ONE Stop: 05/30/17 06:42 Promethazine HCl 6.25 mg/ (Sodium Chloride) 50.25 mls @ 100 mls/hr IV ONETIME PRN PRN Reason: Nausea/Vomiting Stop: 05/30/17 18:00 Cefazolin Sodium/Dextrose 2 gm (/ Premix) 50 mls @ 100 mls/hr IV Q8H [facility] Stop: 05/31/17 07:29 Last Admin: 05/31/17 05:58 Dose: 100 mls/hr Acetaminophen (Ofirmev) 100 mls @ 400 mls/hr IV NOW ONE Stop: 05/30/17 22:35 Last Admin: 05/30/17 22:57 Dose: 400 mls/hr Iodine (Iodine 2% Mild Tincture) Confirm Administered Dose 30 ml .ROUTE .STK- MED ONE Stop: 05/30/17 06:29 Last Admin: 05/30/17 09:03 Dose: 18 ml Ketorolac Tromethamine (Toradol) 15 mg IVPUSH ONETIME ONE Stop: 05/30/17 22:17 Last Admin: 05/30/17 22:34 Dose: 15 mg Ketorolac Tromethamine (Toradol) 15 mg IVPUSH ONETIME ONE Stop: 05/31/17 05:01 Last Admin: 05/31/17 05:46 Dose: 15 mg Lidocaine/Sodium Bicarbonate (Buffered Lidocaine 1% In Ns 8.4%) 0.25 ml IV ONETIME PRN PRN Reason: Prior to IV Start Stop: 05/30/17 18:00 Last Admin: 05/30/17 06:25 Dose: 0.25 ml Meperidine HCl (Demerol) 12.5 mg IVPUSH ONETIME PRN PRN Reason: Shivering Stop: 05/30/17 18:00 Midazolam HCl (Versed 1 Mg/Ml) Confirm Administered Dose 2 mg .ROUTE .STK-MED ONE Stop: 05/30/17 06:25 Ondansetron HCl (Zofran) Confirm Administered Dose 4 mg .ROUTE .STK-MED ONE Stop: 05/30/17 06:27 Propofol (Diprivan 20 Ml) Confirm Administered Dose 200 mg .ROUTE .STK-MED ONE Stop: 05/30/17 06:25 Rocuronium [place] (Zemuron) Confirm Administered Dose 50 mg .ROUTE .STK-MED ONE Stop: 05/30/17 06:27 Ropivacaine (Naropin 0.5%) Confirm Administered Dose 30 ml .ROUTE .STK-MED ONE Stop: 05/30/17 08:25 Sodium Chloride (Saline Flush) 10 ml FLUSH ASDIRECTED PRN PRN Reason: Keep Vein Open Stop: 05/30/17 18:00 Tranexamic Acid (Cyklokapron) Confirm Administered Dose 1,000 mg .ROUTE .STK- MED ONE Stop: 05/30/17 06:28 Last Admin: 05/30/17 09:20 Dose: 1,000 mg Triamcinolone Acetonide (Kenalog-40) Confirm Administered Dose 80 mg .ROUTE .STK -MED ONE Stop: 05/30/17 06:29 Last Admin: 05/30/17 09:27 Dose: 80 mg Vancomycin HCl (Vancomycin) Confirm Administered Dose 1 gm .ROUTE .STK-MED ONE Stop: 05/30/17 06:29 Last Admin: 05/30/17 09:11 Dose: 1 gm *Q Meaningful Use (DIS) - VTE *Q VTE Criteria *Q: - Stroke *Q Stroke Criteria *Q: - AMI *Q AMI Criteria *Q:
[2017-05-31 13:34] VITALS: BP 98/66
--- NOTE | 2017-05-31 13:46 | PCM48HPAN ---
Post Anesthesia Note - EVALUATION WITHIN 48HRS OF ANESTHETIC Vital Signs in Normal Range: Yes Patient Participated in Evaluation: Yes Respiratory Function Stable: Yes Airway Patent: Yes Cardiovascular Function Stable: Yes Hydration Status Stable: Yes Pain Control Satisfactory: Yes Nausea and Vomiting Control Satisfactory: Yes Mental Status Recovered: Yes - COMMENTS/OBSERVATIONS Free Text/Narrative:: Patient denied any s/s of horners syndrome. Pt is doing well resting in bed.
--- NOTE | 2017-06-10 07:08 | PCM.OPNOTE ---
- General Post-Op/Procedure Note Date of Surgery/Procedure: 05/30/17 Operative Procedure(s): right reverse total shoulder arthroplasty Pre Op Diagnosis: right glenohumeral arthrosis Post-Op Diagnosis: Same Anesthesia Technique: General ET Tube, Regional Block Primary Surgeon: Mango Canseco Anesthesia Provider: Ariel Ace Event Management Consultant: Sabiha Tinoco Event Management Consultant: Flores Tucker EBL in mLs: 300 Complications: None Condition: Good
--- NOTE | 2017-06-10 07:51 | OR ---
DATE OF OPERATION: 05/30/2017 SURGEON: Mango Canseco MD OPERATION PERFORMED: Right reverse total shoulder arthroplasty. PREOPERATIVE DIAGNOSIS: Right glenohumeral arthrosis. POSTOPERATIVE DIAGNOSIS: Right glenohumeral arthrosis. ANESTHESIA: General endotracheal intubation with regional interscalene block. ANESTHESIA PROVIDER: Dr. Ariel Ace. ASSISTANTS: 1. Sabiha Tinoco PA-C. 2. Flores Tucker LPN. ESTIMATED BLOOD LOSS: 300 mL. COMPLICATIONS: None. CONDITION: Stable. IMPLANTS: 1. Arthrex size 6 humeral stem. 2. Arthrex size 36+4 glenosphere. 3. Arthrex small glenoid baseplate. 4. Arthrex +3 mm polyethylene. DESCRIPTION OF PROCEDURE: The patient was identified in the preoperative holding area. Proper site was marked and identified by the surgeon. The patient was taken back to the operating theater, where after adequate anesthesia, the patient's right upper extremity was sterilely prepped and draped in the usual sterile fashion. OR time-out was performed. The patient received 2 g of IV Ancef. At this time, standard deltopectoral incision was made. This was taken down then to the deltopectoral interval. The cephalic vein was identified and retracted laterally. The clavipectoral fascia was then incised and the conjoined tendon was retracted medially, and deltoid was retracted laterally. The anterior humeral circumflex vessels were identified and ligated using 0 Vicryl stick tie. The biceps tendon was then identified and the biceps tendon interval was opened. A subpectoral tenodesis was then performed with a FiberWire. Next, the bicipital groove was opened with a curved Yusuf scissors all the way to the level of the glenoid making sure not to disrupt the CA ligament. Once this was done, peel back of the subscapularis tendon was then done. We also did inspect the rotator cuff. There was noted to be significant partial tearing with almost complete peel back of the supraspinatus all the way to the level of the infraspinatus tendon. So at this time, it was decided a reverse total shoulder would be necessary. At this time, a guidepin was placed into the canal and the cutting guide for reverse total shoulder arthroplasty was placed and it was cut in 30 degrees of retroversion. Attention was turned to the glenoid. The remaining labrum and soft tissues were then taken away from around the glenoid. The anterior capsule was taken off the anterior part of the glenoid for better visualization. At this time, a guidepin was placed in a center-center position and central drill hole was then drilled and was found to be in adequate position. At this time, the reamer for the small glenoid baseplate was used. After this the small glenoid baseplate was impacted in place. An inferior and superior locking screws were placed after the central compression screw. At this time, attention was turned to the humerus starting with a size 5 broach, I was able to broach up to a size 6, which was found to be rotationally and vertically stable. Trial implants were then placed for reverse and a 36+4 Arthrex glenosphere was impacted into place. The trial humeral components were then reduced and brought through range of motion. It was found to have adequate tightness of the deltoid, and the conjoined tendon with a +3 polyethylene and it was able to be dislocated. At this time, the size 6 Arthrex stem was impacted and placed along with a +3 polyethylene and the shoulder was relocated. Under fluoroscopy, it was found to be in adequate position. The components were found to be in adequate position. At this time, 1 L dilute Betadine solution was irrigated through the shoulder along with 3 L pulse lavage irrigation with Ancef. Periarticular injection was completed along with a topical vancomycin powder as well as tranexamic acid. Next, using 0 FiberWire I utilized holes through the humeral stem for repair of the subscapularis tendon. Next, the deltopectoral interval was tagged, 2-0 Vicryl was used subcutaneously, and Prineo was used for the skin. The patient tolerated the procedure well and sent to PACU in stable condition. MMODAL /[id number]
== END 2017-05-31 14:20 | disposition home or self-care (01) | DRG 315 ==
LOC: JD.MS 06:09
PROVIDERS: ADMIT Orthopaedic Surgery; ATTEND Orthopaedic Surgery
PROC: 0RRJ00Z Replacement of Right Shoulder Joint with Reverse Ball and Socket Synthetic Substitute, Open Approach (ICD-10-PCS; principal; 2017-05-30)
DX: M19.011 Primary osteoarthritis, right shoulder (principal); M79.7 Fibromyalgia; F41.8 Other specified anxiety disorders; G47.33 Obstructive sleep apnea (adult) (pediatric); Z80.3 Family history of malignant neoplasm of breast; Z79.899 Other long term (current) drug therapy; Z91.048 Other nonmedicinal substance allergy status; N39.3 Stress incontinence (female) (male); R01.1 Cardiac murmur, unspecified; E66.3 Overweight; Z68.25 Body mass index [BMI] 25.0-25.9, adult; H54.7 Unspecified visual loss; Z86.59 Personal history of other mental and behavioral disorders; Z86.19 Personal history of other infectious and parasitic diseases
CPT/HCPCS: 01638; 36415; 64415; 73020-26-RT; 73020-RT; 76000; 76000-26; 80053; 85027; 87641; 97110-GP; 97116-GP; 97161-GP; 97165-GO; 97535-GO; A9270-GY; C1713; C1776; J0171; J0690; J1100; J1170; J1885; J2250; J2270; J2405; J2704; J2795; J3010; J3301; J3370; J3490; J7050; J7120

== ENCOUNTER 2023-02-14 07:36 | Day surgery (SDC) | payer BC ==
[~2023-02-14 07:36] MED LIST changes: -Lactated Ringers 1,000 ML IV SCH; +Lidocaine 1% 4 ML ONE; -Lidocaine 1%/Sod Bicarbonate in NS 8.4% 1 ML Syringe IV PRN; +Propofol 200 MG/20 ML SDV ONE; +fentaNYL 100 MCG/2 ML SDV ONE
[2023-02-14] MEDS ORDERED: Lactated Ringers 1,000 ML IV SCH (07:45)
[2023-02-14] MEDS ORDERED: Sodium Chloride 0.9% 10 ML Syringe FLUSH SCH (09:00)
[2023-02-14 11:56] VITALS: BP 97/68; PULSE 58
== END 2023-02-14 09:38 | disposition home or self-care (01) ==
LOC: JD.SDS 07:36
PROVIDERS: ATTEND Surgery
DX: Z12.11 Encounter for screening for malignant neoplasm of colon (principal); K63.5 Polyp of colon; K57.30 Diverticulosis of large intestine without perforation or abscess without bleeding; F41.9 Anxiety disorder, unspecified; M19.90 Unspecified osteoarthritis, unspecified site; F32.A Depression, unspecified; E78.00 Pure hypercholesterolemia, unspecified; M81.0 Age-related osteoporosis without current pathological fracture; G47.33 Obstructive sleep apnea (adult) (pediatric); J30.81 Allergic rhinitis due to animal (cat) (dog) hair and dander; Z86.16 Personal history of COVID-19; Z87.11 Personal history of peptic ulcer disease; Z90.710 Acquired absence of both cervix and uterus; Z98.890 Other specified postprocedural states; Z96.619 Presence of unspecified artificial shoulder joint; Z80.0 Family history of malignant neoplasm of digestive organs; Z79.899 Other long term (current) drug therapy
CPT/HCPCS: 45380; J2704; J3010; J7120; 00811; J3490